=== PATIENT | male | born 1990 | race African-American/Black ===

== ENCOUNTER 2017-11-18 00:50 | Emergency (ER) | payer MEDICAID ==
[~2017-11-18] VITALS: Ht 180.3 cm; Wt 61.5 kg
[2017-11-18 06:57] VITALS: BP 124/83
[2017-11-18 06:59] LABS: BASOPHILS % 0.6 % (0.0-2.0); EOSINOPHILS % 1.2 % (0.0-5.0); HEMATOCRIT. 47.9 % (42.0-52.0); HEMOGLOBIN. 16.3 g/dL (14.0-18.0); MEAN CORPUSCULAR HEMOGLOBIN 29.7 pg (28.0-32.0); MEAN CORPUSCULAR VOLUME 87.2 fL (80.0-94.0); MEAN PLATELET VOLUME 8.3 fl (7.4-10.4); MONOCYTES % 6.2 % (2.0-8.0); PLATELET 199 x1000/uL (130-400); RED BLOOD CELL COUNT 5.49 mill/uL (4.7-6.1); RED CELL DISTRIBUTION WIDTH 13.4 % (11.6-14.6)
[2017-11-18 07:00] LABS: CHLORIDE 106 mEq/L (98-107)
[2017-11-18 07:06] LABS: ETHANOL BLOOD < 10 mg/dL
== END 2017-11-18 07:26 | disposition left against medical advice (07) ==
LOC: ER 00:50
DX: F91.9 Conduct disorder, unspecified (principal); F20.9 Schizophrenia, unspecified; Z79.899 Other long term (current) drug therapy
CPT/HCPCS: 36415; 80053; 80307; 80329; 85025; 99284; G0482; Z7610

== ENCOUNTER 2018-06-05 09:27 | Emergency (ER) | payer MEDICAID ==
[~2018-06-05] VITALS: Ht 185.4 cm; Wt 72.0 kg
[2018-06-05] MEDS ORDERED: TETANUS, DIPHTHERIA, PERTUSSIS VAC/PF 0.5ML (>7YR OLD) IM ONE (12:00)
[2018-06-05] MEDS ORDERED: BACITRACIN ZINC OINT UDPKT TOP ONE (12:00)
[2018-06-05 13:37] VITALS: BP 120/82
== END 2018-06-05 13:41 | disposition home or self-care (01) ==
LOC: ER 09:27
DX: S60.413A Abrasion of left middle finger, initial encounter (principal); Z93.3 Colostomy status; X58.XXXA Exposure to other specified factors, initial encounter; Y93.89 Activity, other specified; Y92.013 Bedroom of single-family (private) house as the place of occurrence of the external cause
CPT/HCPCS: 90471; 90715; 99283

== ENCOUNTER 2018-06-11 16:44 | Emergency (ER) | payer MEDICAID ==
[~2018-06-11] VITALS: Ht 180.3 cm; Wt 73.0 kg
[2018-06-11] MEDS ORDERED: IBUPROFEN 600MG TABLET PO ONE (19:00)
[2018-06-11 19:48] LABS: CLARITY URINE CLEAR (CLEAR); COLOR URINE YELLOW (YELLOW); KETONES URINE TRACE (NEGATIVE); LEUKOCYTE ESTERASE URINE NEGATIVE (NEGATIVE); NITRITE URINE NEGATIVE (NEGATIVE); OCCULT BLOOD URINE NEGATIVE (NEGATIVE); PH URINE 5.5 (4.5-8.0); PROTEIN URINE NEGATIVE (NEGATIVE); SPECIFIC GRAVITY URINE 1.037 (1.005-1.030)
[2018-06-11 23:20] VITALS: BP 110/60
== END 2018-06-11 23:21 | disposition home or self-care (01) ==
LOC: ER 17:02
DX: S30.22XA Contusion of scrotum and testes, initial encounter (principal); N50.89 Other specified disorders of the male genital organs; V19.9XXA Pedal cyclist (driver) (passenger) injured in unspecified traffic accident, initial encounter; Y93.55 Activity, bike riding; Y92.89 Other specified places as the place of occurrence of the external cause; Y99.8 Other external cause status
CPT/HCPCS: 76870; 81003; 87086; 93976; 99285

== ENCOUNTER 2025-07-06 14:30 | Emergency (ER) | payer MEDICAID ==
[~2025-07-06] VITALS: Ht 180.3 cm; Wt 82.0 kg
[~2025-07-06 14:30] MED LIST: ACET-2708 MT
[2025-07-06 14:37] VITALS: BP 147/84; TEMP 36.7; O2SAT 99
[2025-07-06 14:39] VITALS: PULSE 88; RESP 16; O2SAT 100
== END 2025-07-06 15:03 | disposition home or self-care (01) ==
LOC: ER 14:30
DX: T74.21XA Adult sexual abuse, confirmed, initial encounter (principal); Y92.89 Other specified places as the place of occurrence of the external cause
CPT/HCPCS: 99282

== ENCOUNTER 2025-07-11 16:06 | Emergency (ER) | payer MEDICAID ==
[~2025-07-11] VITALS: Ht 180.3 cm; Wt 82.0 kg
[2025-07-11 16:20] VITALS: O2SAT 97
[2025-07-11] MEDS: IBUPROFEN 400MG TABLET PO ONE (18:33)
[2025-07-11] MEDS ORDERED: IBUP-2028 MT (19:02)
[2025-07-11 19:24] VITALS: BP 128/85; PULSE 90; RESP 18; TEMP 36.9; O2SAT 97
== END 2025-07-11 19:25 | disposition home or self-care (01) ==
LOC: ER 16:06
DX: R07.89 Other chest pain (principal); F10.90 Alcohol use, unspecified, uncomplicated; Y90.9 Presence of alcohol in blood, level not specified
CPT/HCPCS: 99283

== ENCOUNTER 2025-07-19 22:38 | Emergency (ER) | payer MEDICAID ==
[~2025-07-19] VITALS: Ht 180.3 cm; Wt 82.0 kg
[~2025-07-19 22:38] MED LIST changes: +IBUP-2028 MT
[2025-07-19 22:43] VITALS: O2SAT 97
[2025-07-19 23:02] VITALS: BP 134/85; PULSE 82; RESP 18; TEMP 36.7; O2SAT 99
[2025-07-20] MEDS: IBUPROFEN 600MG TABLET PO ONE (01:44)
[2025-07-20] MEDS ORDERED: IBUP-2028 MT (06:28)
== END 2025-07-20 01:47 | disposition home or self-care (01) ==
LOC: ER 22:38
DX: R51.9 Headache, unspecified (principal)
CPT/HCPCS: 99283

== ENCOUNTER 2025-07-20 05:54 | Emergency (ER) | payer MEDICAID ==
[~2025-07-20] VITALS: Ht 175.3 cm; Wt 64.0 kg
[2025-07-20 05:57] VITALS: TEMP 36.7; O2SAT 100
[2025-07-20] MEDS ORDERED: IBUP-2028 MT (06:28)
[2025-07-20 07:29] VITALS: BP 126/80; PULSE 69; RESP 12; O2SAT 100
== END 2025-07-20 07:32 | disposition home or self-care (01) ==
LOC: ER 05:54
DX: R06.02 Shortness of breath (principal); R52 Pain, unspecified
CPT/HCPCS: 99283